=== PATIENT | female | born 1990 | race Caucasian/White ===

== ENCOUNTER 2020-03-30 09:41 | Emergency (ER) | payer OTHER ==
[2020-03-30 09:47] VITALS: BP 110/66; PULSE 62; RESP 16; TEMP 98.1
[2020-03-30] MEDS ORDERED: ACET/COD 300 MG/30 MG STARTER PACK 6 TAB BTL PO STA (09:51)
--- NOTE | 2020-03-30 09:55 | ED ---
Lower Extremity Injury HPI - General Chief Complaint: Extremity Injury, Lower Stated Complaint: R foot injury Time Seen by Provider: 03/30/20 09:49 Source: patient, family Mode of arrival: ambulatory Limitations: physical limitation - History of Present Illness Initial Comments: This 29-year-old female presents today for chief complaint of right foot pain. 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 Patient H is no pain in the ankle she has full range of motion of the ankle she states it is in the right lateral foot she states her symptoms and is swelling noted in the area and pain when she ambulate some weight bears. Patient denies any injury to the head or neck abd omen or chest. Injury to the upper extremities denies any numbness tingling loss of sensation coolness or pallor of the extremity. Patient has no additional complaints or areas of concern. Upon arrival patient appears well nontoxic states she's been taking ibuprofen for the pain - Related Data Home Medications Medication Instructions Recorded Confirmed Acetaminophen Tab [Tylenol Tab] 1,000 mg PO Q6HR PRN 03/30/20 03/30/20 Ibuprofen [Motrin Ib] 800 mg PO Q8H PRN 03/30/20 03/30/20 Paragard Iud 1 device VAGINAL ONCE 03/30/20 03/30/20 Secukinumab [Cosentyx Pen] 300 mg SQ Q30D 03/30/20 03/30/20 Allergies Allergy/AdvReac Type Severity Reaction Status Date / Time No Known Allergies Allergy Verified 03/30/20 09:43 Review of Systems ROS Statement: Those systems with pertinent positive or pertinent negative responses have been documented in the HPI. ROS Other: All systems not noted in ROS Statement are negative. Past Medical History Past Medical History: No Reported History History of Any Multi-Drug Resistant Organisms: None Reported Past Surgical History: Appendectomy, Section Additional Past Surgical History / Comment(s): IUD Past Psychological History: Anxiety, Depression Smoking Status: Current every day smoker Past Alcohol Use History: None Reported Past Drug Use History: None Reported General Exam - General Exam Comments Initial Comments: General: The patient is awake and alert, in no distress, and does not appear acutely ill. Eye: Pupils are equal, round and reactive to light, extra-ocular movements are intact. No nystagmus. There is normal conjunctiva bilaterally. No signs of icterus. Ears, nose, mouth and throat: There are moist mucous membranes and no oral lesions. Musculoskeletal: Upon inspection of the foot there is swelling over the right lateral foot just distal to the ankle joint. There is no pain or swelling mid foot, or near base of the second digit Normal ROM, no tenderness. Strength 5/5. Sensation intact. DP pulses equal bilaterally 2+. Neurological: A&O x 3. CN II-XII intact grossly, There are no obvious motor or sensory deficits. Coordination appears grossly intact. Speech is normal. Skin: Skin is warm and dry and no rashes or lesions are noted. Psychiatric: Cooperative, appropriate mood & affect, normal judgment. Limitations: physical limitation Course Vital Signs 03/30/20 09:44 Temperature 98.1 F Pulse Rate 62 Respiratory 16 Rate Blood Pressure 110/66 O2 Sat by Pulse 99 Oximetry Medical Decision Making - Medical Decision Making 29-year-old female presents today for chief complaint of right foot pain after injury. Bruising and soft tissue swelling noted. This over the lateral aspect of the foot just distal to the ankle joint. Denies any pain to ankle mortise or pain with range of motion at the ankle. X-ray negative for acute fracture this x-ray was personal reviewed. Patient no pain over the area of the [place] region. patient states it hurts to ambulate/weight bear. I recommended crutches and orthopedic f/u. Patient is to take ibuprofen for pain and ice/elevated the area. Patient is agreeable to this care plan discharge at this time. Denies . Disposition Clinical Impression: Right foot injury, Traumatic ecchymosis of right foot Disposition: HOME SELF-CARE Condition: Good Instructions (If sedation given, give patient instructions): Foot Sprain (ED) Additional Instructions: Please use medication as discussed. Please follow-up with family doctor in the next 2 days, if symptoms persist > 1 week please seek orthopedic evaluation. Please return to emergency room if the symptoms increase or worsen or for any other concerns. Is patient prescribed a controlled substance at d/c from ED?: No Referrals: Yury Srivastava DO [Primary Care Provider] - 1-2 days Jose Antonio Levine DO [Medical Doctor] - 1-2 days Time of Disposition: 10:15
--- NOTE | 2020-03-30 10:12 | XR ---
EXAMINATION TYPE: XR foot complete RT DATE OF EXAM: 03/30/2020 CLINICAL HISTORY: Fall injury with pain. TECHNIQUE: Frontal, lateral, and oblique images of the right foot are obtained. COMPARISON: None FINDINGS: There is no acute fracture/dislocation evident in the right foot. Hallux valgus positionin g first metatarsophalangeal joint. Tiny inferior calcaneal spur. The overlying soft tissue appears u nremarkable. IMPRESSION: There is no acute fracture or dislocation in the right foot.
== END 2020-03-30 10:49 | disposition home or self-care (01) ==
LOC: EC 09:41
DX: S90.31XA Contusion of right foot, initial encounter (principal); F17.200 Nicotine dependence, unspecified, uncomplicated; Z97.5 Presence of (intrauterine) contraceptive device; W18.31XA Fall on same level due to stepping on an object, initial encounter; Y92.009 Unspecified place in unspecified non-institutional (private) residence as the place of occurrence of the external cause
CPT/HCPCS: 99283